=== PATIENT | male | born 1940 | race Caucasian/White ===

== ENCOUNTER → 2016-06-04 | Outpatient (CLI) | payer MEDICARE ==
--- NOTE | 2016-06-04 08:57 | CT ---
EXAM DESCRIPTION: CT ABDOMEN PELVIS WITHOUT IV CONTRAST CLINICAL HISTORY: HEMATURIA COMPARISON: None. TECHNIQUE: Noncontrast transaxial CT images of the abdomen and pelvis are obtained using renal stone imaging protocol. CT scan done according to ALARA (As Low As Reasonably Achievable). FINDINGS: The visualized lung bases show mild interstitial thickening. The heart appears enlarged. Given the limitations of a noncontrast exam the liver, spleen comma pancreas, adrenal glands, and gallbladder are unremarkable. Moderate atherosclerotic disease is seen without aortic aneurysm. Kidneys show no abnormal calcifications. No ureteral obstruction. Several fluid attenuation cortical cysts are seen on both kidneys. The largest exophytic cyst on the upper pole right kidney measures 2.2 cm. Urinary bladder is mildly distended. Small probable bladder diverticulum off the dome of the urinary bladder measures 11 mm. Prostate is enlarged measuring 6.9 x 7.4 cm indenting the floor of the urinary bladder. Moderate bilateral fat containing inguinal hernias are seen. The appendix is not identified. No secondary signs of acute appendicitis are seen. Small bowel shows no evidence of obstruction. Stomach is somewhat contracted and not well evaluated. Scattered diverticuli of the colon most prominent in the descending to sigmoid region are seen without associated inflammatory changes or fluid collections. There are multiple nonspecific mostly less than 1 cm retroperitoneal lymph nodes in the abdomen and pelvis. Osseous structures show no aggressive bony lesions. Large area of probable dystrophic or heterotopic ossification in the soft tissue posterior to the lower lumbar spine and upper sacrum measures 8.2 x 2.2 cm. Moderate left greater than right probable osteoarthritic changes of the sacroiliac joints are seen. Remote healed right-sided rib fractures are seen. IMPRESSION: No CT evidence of significant nephrolithiasis or ureteral obstruction. Significant enlargement of the prostate is seen indenting the floor of the urinary bladder. Probable small bladder diverticulum in the dome. Moderate colon diverticulosis without CT evidence of diverticulitis. Other findings as described in body of the report. Electronically signed by: Kwadwo Patterson MD 06/04/2016 08:56
== END ==
LOC: CT 08:25
PROVIDERS: ATTEND Nurse Practitioner Family
DX: R31.9 Hematuria, unspecified (principal); K57.30 Diverticulosis of large intestine without perforation or abscess without bleeding; N40.0 Benign prostatic hyperplasia without lower urinary tract symptoms

== ENCOUNTER → 2016-07-27 | Outpatient (CLI) | payer MEDICARE | END | disposition home or self-care (01) | LOC: GMAJ 10:32 | PROVIDERS: ATTEND Family Medicine | DX: I50.9 Heart failure, unspecified (principal) ==

== ENCOUNTER → 2016-11-27 | Outpatient (CLI) | payer MEDICARE | END | disposition home or self-care (01) | LOC: GMAJ 10:28 | PROVIDERS: ATTEND Family Medicine | DX: I50.9 Heart failure, unspecified (principal); Z12.5 Encounter for screening for malignant neoplasm of prostate | CPT/HCPCS: 83880; G0103 ==

== ENCOUNTER 2017-03-03 11:07 | Inpatient (IN) | payer MEDICARE ==
--- NOTE | 2017-03-03 11:33 | HP ---
SUPERVISING PHYSICIAN: Canelo Reyes M.D. CHIEF COMPLAINT: Shortness of breath with congestion that has been going for several weeks. HISTORY OF PRESENT ILLNESS: This is a 76 year-old male patient who has complaints of shortness of breath, chest congestion, nasal congestion, wheezing and weakness that has been going on for about 2 weeks. About a week ago he saw SINGH Tello, in the [facility] and he was given Augmentin as well as placed on oxygen. He returned to see his primary care physician, Dr. Reyes, this morning and his chest x-ray per radiology interpretation shows interstitial infiltrate in the right lower lobe with a small right sided pleural effusion that has slightly increased since the previous study. His chest congestion had worsened and his oxygen saturations in the clinic were 76 on room air. He was given supplemental oxygen and Dr. Reyes called me for hospital admission. PAST MEDICAL HISTORY: 1. Congestive heart failure of unknown etiology. 2. Coronary artery disease. 3. Hypertension. 4. Atrial fibrillation. 5. Chronic obstructive pulmonary disease. 6. Type 2 diabetes. PAST SURGICAL HISTORY: 1. Appendectomy. 2. Arthroscopy of the right knee. 3. Right femur repair. 4. Triple bypass CABG in 2008. CURRENT MEDICATIONS: Per the EMR and awaiting verification, although he does not take his Metformin. He is prescribed Metformin but he does not take it. ALLERGIES: CODEINE. SOCIAL HISTORY: He is . He has a past history of cigarette smoking, but quit in 2008. He stopped drinking alcohol many years ago. He denies any illicit drug use. REVIEW OF SYSTEMS: Positive for fatigue. Negative for fever or weight changes. HEENT: Positive for sinus symptoms but negative for ear pain, vision changes or sore throat. RESPIRATORY: As per history of present illness. CARDIAC: Negative for chest pain, tachycardia or palpitations. GASTROINTESTINAL: Negative for nausea, vomiting, diarrhea, constipation or abdominal pain. NEUROLOGIC: Positive for weakness. Negative for dizziness or seizures. GENITOURINARY: Negative for dysuria or hematuria. PHYSICAL EXAMINATION: VITAL SIGNS: He is afebrile. Heart rate has gone as high as 113 but is now 96 , blood pressure 127/74. Respiratory rate has been as high as 24 and is now 16. O2 sat was 89 on room air on admission. It is now up to 92 to 93%. It was 76% on room air at the clinic. GENERAL: This is an obese 76 year-old male patient who is lying in his hospital bed. He is slightly dyspneic. HEENT: Normocephalic and atraumatic. Pupils are equal and reactive. Oropharynx is clear. NECK: Supple without mass. CHEST: He has rhonchi scattered throughout with a little bit of expiratory wheezing, especially in the upper lung khan, somewhat diminished at the bases. CARDIOVASCULAR: Irregular rhythm, regular to slightly tachycardic rate. ABDOMEN: Rounded, soft, nondistended, non-tender. Bowel sounds are positive. EXTREMITIES: No cyanosis, clubbing or edema. NEUROLOGIC: He is awake, alert and oriented times three. LABORATORY: His labs today show white count 5.8, hemoglobin 13.7 with hematocrit 42.4, neutrophils 68.6. Blood gas shows PCO2 of 60 and PO2 of 67 with pH of 7.36 and O2 sat of 91.7% on 2 liters nasal cannula. Sodium is slightly low at 132 with potassium 4.4, chloride 93, carbon dioxide 34, anion gap 9.4, BUN 32, creatinine 1.2, glucose 236. BNP is 299. Liver enzymes are negative. Urinalysis shows urine protein at 100, urine glucose of 100 and urine blood of trace intact. Blood cultures, urine cultures and sputum cultures are pending. RADIOLOGY: Report is as per the History of Present Illness. ASSESSMENT: 1. Right lower lobe pneumonia community acquired with considerations for Streptococcus pneumoniae in a patient with a history of chronic obstructive pulmonary disease. He has failed outpatient therapy. 2. Acute exacerbation of chronic obstructive pulmonary disease that has failed outpatient therapy in a patient that uses oxygen at home. 3. History of atrial fibrillation. 4. Congestive heart failure of unknown etiology. 5. Diabetes mellitus. 6. Hypertension. 7. History of 3 vessel coronary artery bypass graft. PLAN: We will admit the patient to the hospital. I have done cultures and will repeat his lab in the morning. Will do a chest x-ray in the morning. I have started him on Levaquin. I will also give him a low dose of steroids. He is on sliding scale insulin for his coverage and I will start his routine medicines. I have ordered aggressive pulmonary hygiene as well as breathing treatments. I have ordered Protonix for ulcer prophylaxis and Lovenox for DVT prophylaxis. We will continue to monitor the patient closely and followup as needed. Dr. Reyes is the collaborating physician available for consultation. [facility][id number] [facility]
[2017-03-03] MEDS ORDERED: SODIUM CHLORIDE 0.9% (FLUSH) 10 ML SYG IV PRN (12:05)
[2017-03-03] MEDS ORDERED: ACETAMINOPHEN 325 MG TAB PO PRN (12:05)
[2017-03-03] MEDS ORDERED: LEVALBUTEROL NEBS 1.25 MG/3 ML VIAL NEB PRN (12:05)
[2017-03-03] MEDS ORDERED: DEXTROSE 50% 25 GM/50 ML SYG IV PRN (12:14)
[2017-03-03] MEDS ORDERED: GLUCAGON INJ 1 MG VIAL SUBCU PRN (12:14)
[2017-03-03] MEDS ORDERED: PANTOPRAZOLE SODIUM IV 40 MG VIAL IV SCH (12:30)
[2017-03-03] MEDS ORDERED: ENOXAPARIN SODIUM 40 MG/0.4 ML SYG SUBCU SCH (12:30)
[2017-03-03] MEDS ORDERED: IV SET AND CAP CHANGE INJ INJ SCH (12:30)
[2017-03-03] MEDS ORDERED: LEVALBUTEROL NEBS 1.25 MG/3 ML VIAL INH SCH (12:30)
[2017-03-03] MEDS: levoFLOXacin 750MG IV 750 MG in PREMIX BAG 1 BAG IVPB SCH (13:11)
[2017-03-03] MEDS: LEVALBUTEROL NEBS 1.25 MG/3 ML VIAL NEB SCH ×2 (16:15→20:41)
[2017-03-03] MEDS: INSULIN LISPRO 100 UNITS/ML PEN SUBCU SCH ×2 (16:32→21:40)
[2017-03-03] MEDS: methylPREDNISolone SODIUM SUC 125 MG/2 ML VIAL IV SCH (18:05)
[2017-03-03] MEDS: SODIUM CHLORIDE 0.9% (FLUSH) 10 ML SYG IV SCH (20:18)
[2017-03-03] MEDS ORDERED: METOPROLOL TARTRATE INJ 5 MG/5 ML VIAL IV ONE (22:22)
[2017-03-03] MEDS: METOPROLOL TARTRATE INJ 5 MG/5 ML VIAL IV SCH (23:41)
[2017-03-04] MEDS: methylPREDNISolone SODIUM SUC 125 MG/2 ML VIAL IV SCH ×3 (01:30→16:53)
[2017-03-04] MEDS: METOPROLOL TARTRATE INJ 5 MG/5 ML VIAL IV SCH ×3 (03:38→15:04)
[2017-03-04] MEDS ORDERED: PANTOPRAZOLE SODIUM IV 40 MG VIAL ONE (05:27)
[2017-03-04] MEDS ORDERED: PANTOPRAZOLE SODIUM IV 40 MG VIAL IV SCH (06:30)
--- NOTE | 2017-03-04 06:48 | RAD ---
Clinical History : Pneumonia , MAIN Exam : PA and lateral views of the chest 03/04/2017 7:00 AM CDT Comparisons : Portable AP view of the chest April 01, 2015 Findings : There is confluent bilateral lower lobe airspace disease with small bilateral pleural effusions. The heart is mildly enlarged. The mediastinal contours are normal in appearance. The patient is status post sternotomy and CABG. There are vascular calcifications along the aortic arch. The thoracic spine is age appropriate. The shoulders are unremarkable. Limited evaluation of the upper abdomen demonstrates no gross abnormalities. Impression: Bilateral lower lobe airspace disease with bilateral pleural effusions, may represent multifocal infectious process. Electronically signed by: Cordelia Youssef MD 03/04/2017 6:47 AM CDT
[2017-03-04] MEDS: INSULIN LISPRO 100 UNITS/ML PEN SUBCU SCH ×4 (07:51→21:10)
[2017-03-04] MEDS ORDERED: METOPROLOL SUCCINATE XL 50 MG TAB ONE ×2 (08:20→19:42)
[2017-03-04] MEDS: SODIUM CHLORIDE 0.9% (FLUSH) 10 ML SYG IV SCH ×2 (08:24→20:29)
[2017-03-04] MEDS: LEVALBUTEROL NEBS 1.25 MG/3 ML VIAL NEB SCH ×4 (08:30→20:07)
[2017-03-04] MEDS ORDERED: METOPROLOL TARTRATE 50 MG TAB PO ONE (08:46)
[2017-03-04] MEDS ORDERED: METOPROLOL SUCCINATE XL 50 MG TAB PO SCH (09:00)
[2017-03-04] MEDS ORDERED: ENOXAPARIN SODIUM 40 MG/0.4 ML SYG SUBCU SCH (09:00)
[2017-03-04] MEDS ORDERED: METOPROLOL TARTRATE 50 MG TAB PO SCH ×2 (09:00→21:00)
[2017-03-04] MEDS: DABIGATRAN ETEXILATE 75 MG CAP PO SCH ×2 (09:45→20:27)
[2017-03-04] MEDS: FUROSEMIDE 40 MG TAB PO SCH (09:47)
[2017-03-04] MEDS ORDERED: METOPROLOL TARTRATE INJ 5 MG/5 ML VIAL IV PRN (11:45)
[2017-03-04] MEDS: levoFLOXacin 750MG IV 750 MG in PREMIX BAG 1 BAG IVPB SCH (13:37)
[2017-03-04] MEDS: diltiaZEM HCL TAB 30 MG TAB PO SCH ×2 (16:52→20:27)
--- NOTE | 2017-03-04 17:09 | PN ---
DATE: 03/04/17 SUPERVISING PHYSICIAN: Canelo Reyes M.D. SUBJECTIVE: The patient is lying in bed. He has no complaints of chest pain, shortness of breath, nausea, vomiting or diarrhea. With exertion, he has some shortness of breath and he continues to cough occasionally, but otherwise he feels like he is getting better. Last night at about 10:00 PM, he went into atrial fibrillation with rapid ventricular response with a rate in the 130s to 150s. He was given a dose of Lopressor 5 mg. It brought his heart rate down to the 120s and then it popped back up into the 130s again. He was given an additional dose of Lopressor 5 mg IV and his heart rate came down to around 100. He did not take his morning Metoprolol on the day of admission but he received his evening dose. He had no chest pain during the accelerated heart rhythm and again this morning at about 7:00 his heart rate went back up to the 140s and he was again in atrial fibrillation with rapid ventricular response. He was given an additional dose of Lopressor and his Metoprolol was increased this morning. I spoke with his mend worker, Dr. Zurita, and he wanted him to continue on his usual dose of Metoprolol and to add Cardizem 60 every 6 hours. OBJECTIVE: He is afebrile, heart rate 97 to 117, blood pressure 132/85. It has been as high as 156/96. Respiratory rate 20, O2 sat is 95% on 1.5 liters nasal cannula. RESPIRATORY: Some scattered rhonchi throughout all khan, somewhat diminished at the bases. There is no wheezing at this time. CARDIAC: Regular to slightly tachycardic rate, irregular rhythm. Atrial fibrillation on the cardiac catheterization technician. ABDOMEN: Soft, nondistended, non-tender. Bowel sounds are positive. EXTREMITIES: No cyanosis or clubbing. He does have a trace of pedal edema. NEUROLOGIC: He is awake, alert and oriented times three. LABORATORY: WBC is 6.2, hemoglobin and hematocrit are stable at 13.1 and 40.5. Sodium 133, potassium 4.7, chloride 93, carbon dioxide 33, anion gap 11.7, BUN 34, creatinine 1.35, glucose 296, BNP 299. Further incubation is required on his sputum culture. Preliminary urine culture shows no growth after 24 hours and preliminary blood culture shows no growth after 24 hours. RADIOLOGY: Chest x-ray per radiology interpretation shows bilateral lower lobe airspace disease with bilateral pleural effusions may represent multifocal infectious process. All other labs and films have been reviewed via the EMR. ASSESSMENT: 1. Right lower lobe pneumonia community acquired with considerations for Streptococcus pneumoniae still awaiting sputum cultures in a patient with a history of chronic obstructive pulmonary disease. He has failed outpatient therapy. He is on chronic oxygen at home. 2. Acute exacerbation of chronic obstructive pulmonary disease that has failed outpatient therapy in a patient that uses oxygen at home. 3. Atrial fibrillation with rapid ventricular response. He has a known history of atrial fibrillation and is on Pradaxa. He required 3 doses of IV Lopressor in the last 12 hours. 4. Congestive heart failure of unknown etiology. 5. Diabetes mellitus type 2. 6. Hypertension. 7. History of coronary artery bypass graft. PLAN: We will continue to monitor the patient closely. I spoke with Dr. Zurita, the patient's mend worker, and he wanted him to continue on his present dose of Metoprolol and add short-acting Cardizem 60 mg every 6 hours. If the patient goes into atrial fibrillation with rapid ventricular response again, we are to increase it to 90 mg every 6 hours. Upon discharge, he is to be discharged on the long-acting Cardizem CD at appropriate dosing based on his Cardizem needs in the hospital. His breathing treatments have been limited to if he is wheezing or short of breath. I have ordered routine labs in the morning. I have discontinued his Lovenox and he was continued on his Pradaxa. He is to continue on his Levaquin until cultures are available. We may need to adjust his sliding scale as he is on steroids and I will taper his steroids. Encourage good pulmonary hygiene. Otherwise we will continue to monitor him closely and follow as needed. Dr. Reyes is the collaborating physician available for consultation. #[id number] [facility]
--- NOTE | 2017-03-04 18:57 | PCM.CORE ---
Physician DVT/VTE - Prophylaxis Currently: Patient already on anticoagulation therapy - Nurse DVT Assessment & Total Each Risk Factor Represents 3 Points: Age over 75 years, Medical PT with Hx of CA, CHF, Severe infection/sepsis Each Risk Factor is 1 Point: Obesity (BMI >25) DVT Assessment Score: 7 - 5 or more Very High Risk Treatments: Early Ambulation *, Sequential Compression Device
[2017-03-04] MEDS ORDERED: PANTOPRAZOLE SODIUM TAB 40 MG PO ONE (19:42)
[2017-03-04] MEDS ORDERED: TAMSULOSIN 0.4 MG CAP ONE (19:42)
[2017-03-04] MEDS: METOPROLOL SUCCINATE XL 50 MG TAB PO SCH (20:27)
[2017-03-04] MEDS: TAMSULOSIN 0.4 MG CAP PO SCH (20:27)
[2017-03-04] MEDS: TEMAZEPAM 15 MG CAP PO PRN ×2 (20:30)
[2017-03-04] MEDS: ALPRAZolam 0.25 MG TAB PO PRN (20:30)
[2017-03-05] MEDS: methylPREDNISolone SODIUM SUC 125 MG/2 ML VIAL IV SCH ×2 (00:39→08:33)
[2017-03-05] MEDS: diltiaZEM HCL TAB 30 MG TAB PO SCH ×4 (04:37→20:36)
[2017-03-05] MEDS: PANTOPRAZOLE SODIUM TAB 40 MG PO SCH (05:42)
--- NOTE | 2017-03-05 07:11 | RAD ---
Procedure: XR CHEST 2 VIEWS Exam Date: 03/05/2017 Ordering Provider: SABRINA BAKER Clinical Indication: pna Comparison: 03/04/2017 Findings: Residuals of thoracic surgery. Cardiomediastinal silhouette is stable. Focal lung consolidation: Bibasilar infiltrates are not significantly changed from prior. Pleural effusion: Small to moderate bilateral pleural effusions. Pneumothorax: None Acute bony or soft tissue abnormality: None Impression: 1. Bibasilar infiltrates are not significantly changed from prior. 2. Small to moderate bilateral pleural effusions. Electronically signed by: Aung Jacques MD 03/05/2017 7:10 AM CDT
[2017-03-05] MEDS ORDERED: FINASTERIDE 5 MG TAB ONE (07:24)
[2017-03-05] MEDS ORDERED: SODIUM CHLORIDE 0.9% 250ML 0 ML ONE (07:24)
[2017-03-05] MEDS ORDERED: cefTRIAXone SODIUM 1 GM VIAL ONE (07:25)
[2017-03-05] MEDS ORDERED: SODIUM CHL 0.9% 50ML MIN-BAG+ 0 ML IVPB ONE (07:25)
[2017-03-05] MEDS ORDERED: AZITHROMYCIN IV 500 MG VIAL IVPB ONE (07:25)
[2017-03-05] MEDS ORDERED: ENALAPRIL MALEATE 5 MG TAB ONE (07:25)
[2017-03-05] MEDS: INSULIN LISPRO 100 UNITS/ML PEN SUBCU SCH ×4 (07:47→21:57)
[2017-03-05] MEDS: LEVALBUTEROL NEBS 1.25 MG/3 ML VIAL NEB SCH ×4 (08:30→19:20)
[2017-03-05] MEDS: FUROSEMIDE 40 MG TAB PO SCH (08:32)
[2017-03-05] MEDS: METOPROLOL SUCCINATE XL 50 MG TAB PO SCH ×2 (08:33→20:36)
[2017-03-05] MEDS: DABIGATRAN ETEXILATE 75 MG CAP PO SCH ×2 (08:33→20:36)
[2017-03-05] MEDS: SODIUM CHLORIDE 0.9% (FLUSH) 10 ML SYG IV SCH ×2 (09:32→20:40)
[2017-03-05] MEDS ORDERED: FUROSEMIDE INJ 20 MG/2 ML VIAL IV ONE (11:29)
[2017-03-05] MEDS ORDERED: levoFLOXacin 250MG IV 250 MG in PREMIX BAG 1 BAG IVPB SCH (12:30)
[2017-03-05] MEDS ORDERED: levoFLOXacin 250MG IV 50 ML IVPB ONE (12:35)
--- NOTE | 2017-03-05 18:26 | PN ---
DATE: 03/05/17 SUPERVISING PHYSICIAN: Canelo Reyes M.D. SUBJECTIVE: The patient denies any further runs of rapid ventricular response through the night. He remains on 60 of Cardizem every 6 hours. He has been afebrile. OBJECTIVE: VITAL SIGNS: T max 98, pulse 75, blood pressure 118/68, respirations 18, satting 94% on nasal cannula at rest at 1.5 liters. I's and O' s show a positive balance of 180 with 980 in, 800 out. He has had several bowel movements. Weight is 93.1 kg. CHEST: Lungs are fairly clear, just diminished towards the bases today. No wheezing is noted. HEART: Slightly irregular rate and rhythm with a controlled ventricular rate. ABDOMEN: Obese but soft, non-tender with positive bowel sounds. EXTREMITIES: Trace of edema remains bilaterally. No clubbing or cyanosis is noted. NEUROLOGIC: He is alert and oriented times three. LABORATORY: White count remains within normal limits at 10,000, hemoglobin 12.8 , hematocrit 39.6, platelet count 169,000. Differential continues to show a left shift. Chemistries show hyponatremia that is persistent with a normal potassium at 4.9. Carbon dioxide remains elevated but improved from previous admission of 34. BUN is elevated at 40, creatinine is up to 1.46. Blood sugars remain elevated in the 200s between 228 and 260. MICROBIOLOGY: Blood cultures remain negative at 48 hours. Urine culture showed no growth at 48 hours. Sputum culture showed normal earlene at 48 hours. RADIOLOGY: Chest x-ray two view chest per radiology interpretation shows bibasilar infiltrates not significantly changed from previous exam and a small to moderate bilateral pleural effusion. ASSESSMENT: 1. Right lower lobe pneumonia community acquired with sputum culture showing no growth with a history of the patient having a history of chronic obstructive pulmonary disease having failed to respond to outpatient treatment plan requiring chronic oxygen. 2. Acute exacerbation of chronic obstructive pulmonary disease with the patient having failed to respond to outpatient treatment plan. 3. Atrial fibrillation with rapid ventricular response on admission now with a controlled rate on Pradaxa and 60 mg of Cardizem every 6 hours. 4. Congestive heart failure unknown etiology with no echocardiogram available for review. 5. Diabetes mellitus type 2, elevated secondary to corticosteroid administration. 6. Hypertension. 7. History of coronary artery bypass grafts. 8. Renal insufficiency likely acute with some exacerbation secondary to current antibiotic therapy with Levaquin and some diuresis. PLAN: Will continue to follow the patient. Anticipate discharge tomorrow as he continues to show good ventricular rate response on current Cardizem of 60 mg every 6 hours. Should he again show an increase in his rate, as instructed by Dr. Zurita will increase him to 90 mg every 6 hours. Tomorrow on discharge he will need to go home on Cardizem CD based off current dosage if remaining the same with controlled ventricular rate. Will continue with aggressive pulmonary hygiene. His renal function has shown some slight worsening probably related to some diuresis and current Levaquin which we will dose according to current renal function. Again, will anticipate discharge tomorrow. Until then, will continue to follow and treat appropriately. #[id number] [facility]
[2017-03-05] MEDS ORDERED: methylPREDNISolone SODIUM SUC 40 MG/ML VIAL ONE (19:47)
[2017-03-05] MEDS: ALPRAZolam 0.25 MG TAB PO PRN (20:36)
[2017-03-05] MEDS: TEMAZEPAM 15 MG CAP PO PRN (20:36)
[2017-03-05] MEDS: TAMSULOSIN 0.4 MG CAP PO SCH (20:36)
[2017-03-05] MEDS: methylPREDNISolone SODIUM SUC 40 MG/ML VIAL IV SCH (20:41)
[2017-03-06] MEDS: diltiaZEM HCL TAB 30 MG TAB PO SCH ×2 (04:10→09:49)
[2017-03-06] MEDS: PANTOPRAZOLE SODIUM TAB 40 MG PO SCH (05:51)
[2017-03-06 06:03] VITALS: O2SAT 93
[2017-03-06] MEDS: LEVALBUTEROL NEBS 1.25 MG/3 ML VIAL NEB SCH (07:24)
[2017-03-06] MEDS: INSULIN LISPRO 100 UNITS/ML PEN SUBCU SCH (07:47)
[2017-03-06 08:27] VITALS: BP 118/75; TEMP 97.6
[2017-03-06] MEDS: FUROSEMIDE 40 MG TAB PO SCH (08:28)
[2017-03-06] MEDS: methylPREDNISolone SODIUM SUC 40 MG/ML VIAL IV SCH (08:28)
[2017-03-06] MEDS: DABIGATRAN ETEXILATE 75 MG CAP PO SCH (08:30)
[2017-03-06] MEDS: METOPROLOL SUCCINATE XL 50 MG TAB PO SCH (08:30)
[2017-03-06] MEDS: SODIUM CHLORIDE 0.9% (FLUSH) 10 ML SYG IV SCH (08:30)
[2017-03-06] MEDS ORDERED: INFLUENZA VIRUS VACC (ADULT) 0.5 ML SYG IM ONE (10:48)
[2017-03-07] MEDS ORDERED: predniSONE 20 MG TAB PO SCH (09:00)
--- NOTE | 2017-03-12 11:19 | DS ---
SUPERVISING PHYSICIAN: Canelo Reyes MD DISCHARGE DIAGNOSIS: 1. Right lower lobe pneumonia, community acquired, with the patient having long- standing history of chronic obstructive pulmonary disease, having failed to respond to outpatient treatment plan requiring ongoing oxygen therapy with sputum cultures showing no growth. 2. Acute exacerbation of chronic obstructive pulmonary disease with the patient having failed to respond to outpatient treatment plan. 3. Atrial fibrillation with rapid ventricular response on admission, now controlled on Pradaxa and 60 mg of Cardizem every 6 hours, transitioned to Cardizem CD at discharge. 4. Congestive heart failure, unknown etiology, with no echocardiogram available for review. 5. Diabetes mellitus, type 2, elevated secondary to corticosteroid administration. 6. Hypertension. 7. History of coronary artery disease with coronary artery bypass grafts. 8. Renal insufficiency, likely acute with exacerbation secondary to current antibiotic therapy with Levaquin and diuresis. HISTORY OF PRESENT ILLNESS: Mr. Babcock is a 76-year-old, male patient who had complaints of shortness of breath, chest congestion, nasal congestion, wheezing and weakness that had been progressively worsening for the last 2 weeks prior to admission. About a week prior, he saw SINGH Tello, in the [facility] clinic and he was given Augmentin as well as placed on oxygen. He returned to see his primary care physician, Dr. Reyes, the morning of admission and his chest x-ray per radiology interpretation showed interstitial infiltrate in the right lower lobe with a small right sided pleural effusion that had slightly increased since the previous study. His chest congestion had worsened and his oxygen saturations in the clinic were 76% on room air. He was given supplemental oxygen and Dr. Reyes requested the patient be directly admitted for continuation of treatment for developing community acquired pneumonia. The patient was admitted in stable condition. LABORATORY: Initial white count on admission was 5.8 and at discharge was 10.0. Hemoglobin was stable, hematocrit stable and at discharge were 12.8 and 39.6. Platelet count 169,000. Differential did show a left shift although the patient had been started on corticosteroids. His blood gas on admission showed pH 7.36, PCO2 60, PO2 67, bicarb 32, saturation 91% on nasal cannula at 2 liters. Chemistries on admission showed hyponatremia with sodium 132, potassium normal at 4.4, BUN 32, creatinine 1.20. Liver functions were within normal limits. BNP elevated at 299. Blood sugars were elevated secondary to corticosteroid administration ranging from 200 to 300s. After treatment and prior to discharge, sodium showed some improvement and was up to 134. BUN was 56, creatinine 2.16, but he had been diuresed pretty heavily as well as on high dose Levaquin. Urinalysis showed 100 glucose, 100 protein, trace amount of blood, otherwise within normal limits. MICROBIOLOGY: Two sets of blood cultures remained negative after 5 days. Urine culture showed no growth after 48 hours. Sputum culture showed no growth at 48 hours. RADIOLOGY: Chest x-ray after admission showed bilateral lower lobe airspace disease with bilateral pleural effusions per radiologic interpretation. EKG on admission showed atrial fibrillation with rapid ventricular response in the 150s. Additional chest x-rays prior to discharge per radiologic interpretation showed bibasilar infiltrates, not significantly changed from previous and a small moderate bilateral pleural effusion. HOSPITAL COURSE: Mr. Babcock was admitted for exacerbation of chronic obstructive pulmonary disease with pneumonia as noted above. He was started on aggressive pulmonary hygiene with breathing treatments and Levaquin as well as Solu-Medrol. He did have initial ventricular response that was in the 150s. He was given additional doses of Lopressor IV with good result in some decrease of his rate, however, was started on Cardizem p.o. which did show his rate at 60 mg q.6h. No additional adjustments were needed. He was titrated off his steroids to p.o. prednisone prior to discharge. Levaquin was dosed according to renal function . He was showing good improvement and good response to clinical treatment as well as he had been on ceftriaxone and azithromycin. It was felt on the morning of discharge that he had progressed clinically well enough and was stable to be discharged. PLAN: Mr. Babcock was discharged on 03/06/17 with instructions to followup with both his primary care provider, Dr. Reyes, the following week after discharge as well as Dr. Zurita, his disbursing agent. He was to resume his home medications as instructed and start new prescriptions as directed. He was to limit his fluids to less than 1800 mL per 24 hour period and to keep his legs elevated when in a chair. He was to wear his oxygen as directed and return to the hospital should he have any concerning symptoms or any failure to improve in his condition. DISCHARGE PRESCRIPTIONS: 1. Xopenex nebulizer treatments 1.25 mg q.8h. 2. Xopenex inhaler 45 mcg q.8h., #1 inhaler. 3. Cardizem CD 240 mg daily, #30. 4. Levaquin 250 mg daily, #10. 5. Medrol Dosepak 4 mg as directed. All other medications were resumed as prior to hospitalization. DIET AT DISCHARGE: Regular diet as tolerated. ACTIVITY: As tolerated. CONDITION AT DISCHARGE: Stable and improved. [facility][id number] [facility]
== END 2017-03-06 12:00 | disposition home or self-care (01) | DRG 190 ==
LOC: MS 11:07
PROVIDERS: ADMIT Nurse Practitioner Acute Care; ATTEND Nurse Practitioner Family
DX: J44.0 Chronic obstructive pulmonary disease with (acute) lower respiratory infection (principal); J18.9 Pneumonia, unspecified organism; J44.1 Chronic obstructive pulmonary disease with (acute) exacerbation; I11.0 Hypertensive heart disease with heart failure; I50.9 Heart failure, unspecified; I48.91 Unspecified atrial fibrillation; E11.9 Type 2 diabetes mellitus without complications; N28.9 Disorder of kidney and ureter, unspecified; I25.10 Atherosclerotic heart disease of native coronary artery without angina pectoris; T37.8X5A Adverse effect of other specified systemic anti-infectives and antiparasitics, initial encounter; Y92.230 Patient room in hospital as the place of occurrence of the external cause; Z95.1 Presence of aortocoronary bypass graft; Z88.5 Allergy status to narcotic agent; Z87.891 Personal history of nicotine dependence

== ENCOUNTER → 2017-03-23 | Outpatient (CLI) | payer MEDICARE | END | disposition home or self-care (01) | LOC: YCHH 09:51 | PROVIDERS: ATTEND Family Medicine | DX: E11.9 Type 2 diabetes mellitus without complications (principal) ==

== ENCOUNTER → 2017-03-24 | Outpatient (CLI) | payer MEDICARE | END | disposition home or self-care (01) | LOC: LAB.O 13:28 | PROVIDERS: ATTEND Family Medicine | DX: I25.10 Atherosclerotic heart disease of native coronary artery without angina pectoris (principal); R97.20 Elevated prostate specific antigen [PSA] ==

== ENCOUNTER → 2017-04-29 | Outpatient (CLI) | payer MEDICARE | END | disposition home or self-care (01) | LOC: GMAJ 16:39 | PROVIDERS: ATTEND Family Medicine | DX: R06.02 Shortness of breath (principal) ==

== ENCOUNTER 2017-05-01 15:26 | Emergency (ER) | payer MEDICARE ==
[2017-05-01 15:39] VITALS: TEMP 97.8
--- NOTE | 2017-05-01 16:11 | ED.PDOC ---
History of Present Illness - General Chief Complaint: Respiratory Problem Stated Complaint: weakness, shortness of breath Time Seen by Provider: 05/01/17 15:58 Source: patient Exam Limitations: no limitations Additional Information: PT WITH 1-2 WEEK HX OF SOB AND WEAKNESS WHICH HAS BEEN INTERMITTENT. TODAY BECAME SOB WITH MUCH MORE WEAKNESS THAN PREVIOUS. CAME IN FOR EVAL - History of Present Illness Timing/Duration: 1 week Severity: moderate Improving Factors: nothing Worsening Factors: nothing Associated Symptoms: denies symptoms Allergies/Adverse Reactions: Allergies Codeine Allergy (Verified 04/01/15 13:29) Home Medications: Ambulatory Orders Dabigatran Etexilate Mesylate [Pradaxa] 150 mg PO BID 03/03/17 Furosemide [Lasix] 20 mg PO DAILY 03/03/17 Metoprolol Succinate [Metoprolol Succinate ER] 50 mg PO BID 03/03/17 Tamsulosin [Flomax] 0.4 mg PO BEDTIME 03/03/17 Diltiazem HCl Coated Beads [Cardizem Cd] 240 mg PO DAILY #30 cap 03/06/17 Levalbuterol Nebs [Xopenex NEBS] 1.25 mg NEB Q8HR #24 units 03/06/17 Levalbuterol Tartrate [Xopenex Hfa] 45 mcg IN Q8HR #1 inh 03/06/17 Levofloxacin [Levaquin] 250 mg PO DAILY #10 tab 03/06/17 Methylprednisolone [Medrol Dose Cuauhtemoc] 4 mg PO DAILY #1 pack 03/06/17 Levofloxacin [Levaquin] 750 mg PO DAILY #4 tablet 05/01/17 Review of Systems - Review of Systems Constitutional: Denies: chills, fever EENTM: States: no symptoms reported Respiratory: States: cough, short of breath. Denies: orthopnea, wheezing Cardiology: Denies: chest pain, palpitations, syncope Gastrointestinal/Abdominal: Denies: abdominal pain, nausea, vomiting Genitourinary: States: no symptoms reported Musculoskeletal: States: no symptoms reported Skin: States: no symptoms reported Neurological: States: no symptoms reported Endocrine: States: no symptoms reported Hematologic/Lymphatic: States: no symptoms reported Past Medical History (General) - Patient Medical History Hx Seizures: No Hx Stroke: No Hx Asthma: No Hx of COPD: Yes Hx Cardiac Disorders: Yes Hx Congestive Heart Failure: Yes Hx Pacemaker: No Hx Hypertension: Yes Hx Diabetes: Yes Hx MRSA: No Surgical History: appendectomy, coronary bypass surgery, other - Vaccination History Hx Influenza Vaccination: Yes - Social History Hx Tobacco Use: No Hx Alcohol Use: No Hx Substance Use: No Hx Physical Abuse: No Hx Emotional Abuse: No Family Medical History - Family History Father Family History: Unknown Living Status: Unknown Physical Exam - Physical Exam General Appearance: Obese, Other - MILD RD Eye Exam: bilateral normal Ears, Nose, Throat: hearing grossly normal, normal ENT inspection Neck: non-tender, full range of motion, supple Respiratory: lungs clear, normal breath sounds, no respiratory distress, other - DIMINSHED DANNY Cardiovascular/Chest: regular rate, rhythm, no murmur Gastrointestinal/Abdominal: normal bowel sounds, non tender, soft, no organomegaly Back Exam: normal inspection, no CVA tenderness Extremity: normal range of motion, non-tender, other - 1+ PITTING EDEMA Neurologic: alert, normal mood/affect Skin Exam: normal color, warm/dry Lymphatic: no adenopathy Progress - Progress Progress: 05/01/17 18:44 O2 SATS STABLE ON N/C. PT WITH PROBABLE NEW RLL INFILTRATE VS RESOLVING INFILTRATE. WOULD RATHER TRY TO TX AT HOME OPPOSED TO HOSPITALIZATION. INSTRUCTED TO WEAR O2 /, NEBS 4-6 TIMES DAILY AND CALL PCP WEDNESDAY AM. PT AGREED. - EKG/XRAY/CT EKG: Atrial, Fibrillation - RATE 83, NL AXIS, OLD ANT/SEPTAL WALL VT, , nonspecific ST T wave Chg - NAIP, , Abnormal Q waves - 03/03/17. ANT/SEPTAL CHANGES NEW. XRAY: chest - RLL INFILTRATE Procedures - Additional Procedures Progress: O2 SATS 85% RA (HYPOXIC) Departure - Departure Clinical Impression: Atrial fibrillation with normal ventricular rate, Hypoxemia Pneumonia Qualifiers: Pneumonia type: due to unspecified organism Laterality: right Lung location: lower lobe of lung Qualified Code(s): J18.1 - Lobar pneumonia, unspecified organism Time of Disposition: 18:50 Disposition: Discharge to Home or Self Care Condition: Fair Departure Forms: ED Discharge - Pt. Copy, Patient Portal Self Enrollment Instructions: DI for Pneumonia -- Adult Referrals: Canelo Reyes MD [Primary Care Provider] - 1-2 Weeks Prescriptions: Levofloxacin [Levaquin] 750 mg PO DAILY #4 tablet Home Medications: Ambulatory Orders Dabigatran Etexilate Mesylate [Pradaxa] 150 mg PO BID 03/03/17 Furosemide [Lasix] 20 mg PO DAILY 03/03/17 Metoprolol Succinate [Metoprolol Succinate ER] 50 mg PO BID 03/03/17 Tamsulosin [Flomax] 0.4 mg PO BEDTIME 03/03/17 Diltiazem HCl Coated Beads [Cardizem Cd] 240 mg PO DAILY #30 cap 03/06/17 Levalbuterol Nebs [Xopenex NEBS] 1.25 mg NEB Q8HR #24 units 03/06/17 Levalbuterol Tartrate [Xopenex Hfa] 45 mcg IN Q8HR #1 inh 03/06/17 Levofloxacin [Levaquin] 250 mg PO DAILY #10 tab 03/06/17 Methylprednisolone [Medrol Dose Cuauhtemoc] 4 mg PO DAILY #1 pack 03/06/17 Levofloxacin [Levaquin] 750 mg PO DAILY #4 tablet 05/01/17
--- NOTE | 2017-05-01 16:45 | RAD ---
EXAM DESCRIPTION: Chest,1 View CLINICAL HISTORY: SOB COMPARISON: 03/05/2017 FINDINGS: Aeration is improved generally at the lung bases but there is persistent bilateral subsegmental atelectasis. Cardiac silhouette is stable. Consolidation has developed at the inferior most right lung base. IMPRESSION: Right lung base worsened consolidation but generally improved aeration at the lung bases. Electronically signed by: Yariel John 05/01/2017 4:44 PM [facility]
[2017-05-01 16:58] VITALS: O2SAT 95
[2017-05-01] MEDS ORDERED: levoFLOXacin 500 MG TAB PO ONE (18:40)
[2017-05-01] MEDS ORDERED: methylPREDNISolone SODIUM SUC 125 MG/2 ML VIAL IM ONE ×2 (18:41→18:43)
[2017-05-01 19:19] VITALS: BP 132/89
== END 2017-05-01 19:20 | disposition home or self-care (01) ==
LOC: ER 15:26
DX: J18.1 Lobar pneumonia, unspecified organism (principal); R09.02 Hypoxemia; I48.91 Unspecified atrial fibrillation; J44.9 Chronic obstructive pulmonary disease, unspecified; I11.0 Hypertensive heart disease with heart failure; I50.9 Heart failure, unspecified; E11.9 Type 2 diabetes mellitus without complications; Z95.1 Presence of aortocoronary bypass graft
CPT/HCPCS: 36415; 71010; 80053; 83880; 84484; 85025; 85610; 85730; 93005; J2930

== ENCOUNTER → 2017-05-12 | Outpatient (CLI) | payer MEDICARE | END | disposition home or self-care (01) | LOC: GMAJ 11:14 | PROVIDERS: ATTEND Family Medicine | DX: R06.02 Shortness of breath (principal) ==

== ENCOUNTER 2017-05-22 09:46 | Observation (INO) | payer MEDICARE ==
[2017-05-22] MEDS ORDERED: FUROSEMIDE INJ 40 MG/4 ML VIAL IV ONE ×2 (11:10→17:05)
--- NOTE | 2017-05-22 11:31 | ED.PDOC ---
History of Present Illness - General Chief Complaint: Respiratory Problem Stated Complaint: sob Time Seen by Provider: 05/22/17 09:59 Source: patient Exam Limitations: no limitations - History of Present Illness Initial Comments: The patient is a 76-year-old male presenting to the emergency room secondary to worsening shortness of breath overnight. The patient has a strong history of congestive heart failure. He was just cardioverted back to normal sinus rhythm yesterday. He is still in normal sinus rhythm. He does report that he normally gets short of breath in the middle of the night and does have to go sleep in his chair. He is short of breath here and does not relate back due to shortness of breath. He has a cough but it is nonproductive. He does have edema here but not an unusual amount for him. No fever. No sore throat. No significant runny nose. He does appear tired. No chest pain. Of significant note when EMS arrived he did have his oxygen on however his oxygen saturations were only in the mid 80s. When he was switched over to nasal cannula with the EMS his oxygen supply his oxygen saturations came up nicely. It is suspected that his regulator is either not working correctly was oxygen supply was not being delivered correctly. Timing/Duration: 4-6 hours Severity: moderate Improving Factors: nothing Worsening Factors: nothing Associated Symptoms: loss of appetite, malaise, shortness of breath, weakness Allergies/Adverse Reactions: Allergies Aspirin Allergy (Verified 05/22/17 09:59) Codeine Allergy (Verified 05/22/17 10:00) Home Medications: Ambulatory Orders Dabigatran Etexilate Mesylate [Pradaxa] 150 mg PO BID 03/03/17 Furosemide [Lasix] 60 mg PO DAILY 03/03/17 Metoprolol Succinate [Metoprolol Succinate ER] 50 mg PO BID 03/03/17 Tamsulosin [Flomax] 0.4 mg PO BEDTIME 03/03/17 Diltiazem HCl Coated Beads [Cardizem Cd] 240 mg PO DAILY #30 cap 03/06/17 Glimepiride 1 mg PO DAILY 05/22/17 metFORMIN HCL [Glucophage] 500 mg PO BID 05/22/17 Review of Systems - Review of Systems Constitutional: States: malaise EENTM: States: no symptoms reported Respiratory: States: cough, short of breath Cardiology: States: no symptoms reported Gastrointestinal/Abdominal: States: no symptoms reported Genitourinary: States: no symptoms reported Musculoskeletal: States: no symptoms reported Skin: States: no symptoms reported Endocrine: States: no symptoms reported Hematologic/Lymphatic: States: no symptoms reported All other Systems: No Change from Baseline Past Medical History (General) - Patient Medical History Hx Seizures: No Hx Stroke: No Hx Asthma: No Hx of COPD: Yes Hx Cardiac Disorders: Yes - A-Fib Hx Congestive Heart Failure: Yes Hx Pacemaker: No Hx Hypertension: Yes Hx Diabetes: Yes Hx MRSA: No Surgical History: appendectomy, other - Vaccination History Hx Influenza Vaccination: Yes Hx Pneumococcal Vaccination: Yes - Social History Hx Tobacco Use: No Hx Alcohol Use: No Hx Substance Use: No Hx Physical Abuse: No Hx Emotional Abuse: No Family Medical History - Family History Father Family History: Unknown Living Status: Physical Exam - Physical Exam General Appearance: Alert - a little bit drowsy, No apparent distress Eye Exam: bilateral normal Ears, Nose, Throat: hearing grossly normal, normal ENT inspection, normal pharynx Neck: full range of motion, supple Respiratory: respiratory distress - mild, accessory muscle use, other - mild rales at bilateral bases Cardiovascular/Chest: normal peripheral pulses, regular rate, rhythm Peripheral Pulses: radial,right: 2+, radial,left: 2+, dorsalis pedis,right: 2+, dorsalis pedis,left: 2+ Gastrointestinal/Abdominal: non tender, soft Rectal Exam: deferred Back Exam: no CVA tenderness, no vertebral tenderness, other - multiple dermoid cyst posteriorly Extremity: normal range of motion, non-tender, normal inspection, normal capillary refill, pedal edema - +1 bilaterally 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, alert, normal mood/affect, oriented x 3 Skin Exam: normal color Comments: Vital Signs - 24 hr 05/22/17 05/22/17 05/22/17 09:47 10:30 10:50 Temperature 97.7 F Pulse Rate [ 101 H 92 H Apical] Respiratory 36 H 24 24 Rate Blood Pressure 154/91 139/76 [Left Arm] O2 Sat by Pulse 95 99 Oximetry 05/22/17 05/22/17 11:05 11:27 Temperature Pulse Rate [ 89 92 H Apical] Respiratory 20 20 Rate Blood Pressure 142/77 142/82 [Left Arm] O2 Sat by Pulse 98 99 Oximetry Progress - Progress Progress: 05/22/17 11:33 the patient's a 76-year-old male presenting to the emergency room with what appears to be a worsening CHF exacerbation. He has been placed on oxygen his oxygen saturation to have corrected. The patient received 40 mg of IV Lasix here. He does appear to still be in a normal sinus rhythm from his cardioversion yesterday. He is apparently still taking an oral antibiotic of which we are not sure from his previous lung infection. I do not see any clinical evidence of any overt infection at this time. He has had significant infiltrate to the right lower lung field for some period of time now so if he is failing to improve with diuresis then additional imaging may be warranted. Admit for further care and management. His oxygen delivery system at home they need to be reevaluated. - Results/Orders Results/Orders: Laboratory Tests 05/22/17 05/22/17 05/22/17 10:18 10:18 10:18 WBC 7.5 RBC 4.37 L Hgb 12.9 L Hct 40.8 L MCV 93.5 MCH 29.5 MCHC 31.6 L RDW 15.8 H Plt Count 250 MPV 8.0 Absolute Neuts (auto) 5.80 Absolute Lymphs (auto) 0.80 L Absolute Monos (auto) 0.80 Absolute Eos (auto) 0.20 Absolute Basos (auto) 0.00 Neutrophils % 77.0 Lymphocytes % 10.3 L Monocytes % 10.1 H Eosinophils % 2.2 Basophils % 0.4 PT 20.3 H* INR 1.810 PTT (SP) 85.3 H* Sodium 144 Potassium 4.9 Chloride 102 Carbon Dioxide 36 H Anion Gap 10.9 L BUN 39 H Creatinine 1.60 H BUN/Creatinine Ratio 24.4 H Random Glucose 226 H Serum Osmolality 303.3 H Calcium 9.8 Magnesium 2.5 Total Bilirubin 0.6 AST 17 ALT 16 Alkaline Phosphatase 86 Creatine Kinase 26 L CK-MB (CK-2) 1.9 CK-MB (CK-2) % Not Reportable Troponin I 0.02 B-Natriuretic Peptide 880.0 H* Serum Total Protein 7.7 Albumin 4.3 Globulin 3.4 Albumin/Globulin Ratio 1.3 final read on chest. X-ray is still pending due to technical difficulties. He does appear to have increased fluid overload as well as increased cardiomegaly. No new focal infiltrates as far as I can tell. Again final read is pending. EKG shows normal sinus rhythm at a rate of [address] segment changes concerning for ischemia. He does have a few PACs. Departure - Departure Clinical Impression: Acute exacerbation of CHF (congestive heart failure) Qualifiers: Congestive heart failure type: unspecified congestive heart failure type Qualified Code(s): I50.9 - Heart failure, unspecified Disposition: Admit Patient Referrals: Canelo Reyes MD [Primary Care Provider] - 1-2 Weeks Home Medications: Ambulatory Orders Dabigatran Etexilate Mesylate [Pradaxa] 150 mg PO BID 03/03/17 Furosemide [Lasix] 60 mg PO DAILY 03/03/17 Metoprolol Succinate [Metoprolol Succinate ER] 50 mg PO BID 03/03/17 Tamsulosin [Flomax] 0.4 mg PO BEDTIME 03/03/17 Diltiazem HCl Coated Beads [Cardizem Cd] 240 mg PO DAILY #30 cap 03/06/17 Glimepiride 1 mg PO DAILY 05/22/17 metFORMIN HCL [Glucophage] 500 mg PO BID 05/22/17 Decision To Admit - Decistion To Admit Decision to Admit Reason: Medical Nature Decision to Admit Date: 05/22/17 Decision to Admit Time: 11:34
--- NOTE | 2017-05-22 12:03 | RAD ---
PROCEDURE: XR CHEST 1 VIEW HISTORY: sob COMPARISON: 05/01/2017 TECHNIQUE: Single projection of the chest was done. FINDINGS: Note is again made of median sternotomy. There is presence of right midlung zone and bibasilar infiltrate/atelectasis, with slight interval worsening in these findings since the prior study done on 05/01/2017. There is presence of small bilateral pleural effusions, unchanged . There are no pneumothoraces The cardiomediastinal silhouette is stable. IMPRESSION: There is presence of right midlung zone and bibasilar infiltrate/atelectasis, with slight interval worsening in these findings since the prior study done on 05/01/2017. There is presence of small bilateral pleural effusions, unchanged . Electronically signed by: Edward Lin MD 05/22/2017 12:01 PM [facility] Workstation: [id number]
--- NOTE | 2017-05-22 12:59 | HP ---
SUPERVISING PHYSICIAN: Gokul Wyatt M.D. CHIEF COMPLAINT: Shortness of breath. HISTORY OF PRESENT ILLNESS: Mr. Babcock is a 76 year-old male patient that was brought to the Emergency Room today secondary to worsening shortness of breath. He noted that he normally in the the past has had to sleep in a chair in the middle of the night, but was able to actually sleep in a bed last night. It was noted that he had a history of atrial fibrillation and had an electrocardioversion completed yesterday, and was sent home. He noted he was feeling okay when he got home and was sleeping well until he started having significant shortness of breath. He does wear oxygen at home continuous. He notes that he does have a nonproductive cough and has edema to his lower extremities which did not appear to be any worse than his normal daily lower extremity edema that he deals with. When EMS arrived at his house, he was noted to be satting in the mid 80s as he was on his home oxygen. When he was changed to nasal cannula via the EMS oxygen supply, his oxygen saturations immediately improved up into the mid 90s. There was a question whether or not he was actually getting good flow from his home O2 setup. He was brought to the Emergency Department for evaluation. A chest x-ray single view was completed and per radiology interpretation showed the presence of a right mid lung zone and bibasilar infiltrate/atelectasis with slight interval worsening with studies compared to on 05/01/17. There was also note of a small bilateral pleural effusion which appeared to be unchanged. He does have a history of congestive heart failure and review of charts in the clinic showed that his last echocardiogram was in November of 2016 with a reported grade 3 diastolic dysfunction with an estimated ejection fraction of 50%. It is also of note that yesterday prior to going to [place] where he had his cardioversion by Dr. Zurita, he actually had not taken his Lasix. Also of note from review of the charts was that he has been in Dr. Reyes' office weekly over the last 3 weeks for ongoing increasing shortness of breath and was on 05/19/17 started on Ciprofloxacin for lobular pneumonia. He was in the hospital in February for treatment of right lobe pneumonia. His laboratory studies in the E. R. showed he had a normal white count at 7,500 with no evidence of a left shift. His chemistries showed that he had an elevated BUN and creatinine with elevated BNP of 880. His other electrolytes were within normal limits and also of note was his CO2 was elevated at 36. Given the findings on his chest x-ray and history of congestive heart failure, it was felt that the patient was having an exacerbation of his congestive heart failure and Dr. Wyatt, E. R. physician, requested the patient be placed in Observation for further treatment and evaluation, for diuresis to assist with decreasing his dyspnea. He was given 40 of Lasix in the Emergency Department and then admitted to the Medical/ Surgical floor in stable condition. PAST MEDICAL HISTORY: 1. Congestive heart failure with echocardiogram being performed on 12/10/16 showing an ejection fraction of 50% with a grade 3 diastolic dysfunction. 2. History of atrial fibrillation with a recent electrocardioversion on by Dr. Zurita showing to be in normal sinus rhythm. 3. Chronic obstructive pulmonary disease. 4. Hypertension. 5. Type 2 diabetes mellitus. 6. Coronary artery disease. 7. Cervical radiculopathy at C7. PAST SURGICAL HISTORY: 1. Appendectomy. 2. Arthroscopy of the right knee. 3. Right femur repair. 4. Triple bypass coronary artery bypass graft in 2008. CURRENT MEDICATIONS: Please see updated list of verified in the electronic medical records with current medications showing to be: 1. Metformin 500 mg b.i.d. 2. Glimepiride 1 mg daily. 3. Metoprolol succinate extended release 50 mg b.i.d. 4. Cardizem 240 mg daily. 5. Flomax 0.4 mg at bedtime. 6. Lasix 60 mg daily. 7. Pradaxa 150 mg b.i.d. ALLERGIES: ASPIRIN AND CODEINE. FAMILY HISTORY: Father at age 78 secondary to natural causes. Mother at age 87 of unknown causes. SOCIAL HISTORY: The patient is . He does live in [place]. He has a history of cigarette smoking but quit in 2008. He stopped drinking alcohol many years ago. He denies any illicit drug use. REVIEW OF SYSTEMS: CONSTITUTIONAL: Notes generalized fatigue and malaise with no significant weight change. HEENT: Negative for any sinus congestion, ear pain, sore throat, vision changes. RESPIRATORY: Noted shortness of breath as in the History of Present Illness with a nonproductive cough. CARDIOVASCULAR: No reported chest pains, palpitations or syncopal episodes, but recently had a cardioversion within the last 48 hours. GASTROINTESTINAL: Denies any nausea or vomiting, diarrhea, constipation or abdominal pains. GENITOURINARY: Denies any dysuria or hematuria or other urinary symptoms. NEUROLOGIC: Negative for any dizziness, seizures, syncopal episodes or neurological deficits. PHYSICAL EXAMINATION: VITAL SIGNS: Temperature 97.4, pulse 89, blood pressure 149/75, respirations 22 , satting 91% on nasal cannula at rest. Admission weight 87.7 kg. GENERAL: The patient on admission to the Medical/Surgical floor shows to be alert. No acute distress. He is sitting in a chair. He is obese-appearing. Appears tired and is alert times three. HEENT: Tympanic membranes are clear bilaterally. Oropharynx is pink, moist without any lesions. NECK: Supple, non-tender with full range of motion. No jugular venous distention. CHEST: Some notable rales bilaterally towards the bases but no rhonchi or wheezing. CARDIOVASCULAR: Regular rate and rhythm without appreciable murmurs, gallops, or rubs. ABDOMEN: Obese but soft, non-tender. Positive bowel sounds. EXTREMITIES: 1+ pedal edema bilaterally without clubbing or cyanosis. NEUROLOGIC: Cranial nerves II-XII are grossly intact with facial features symmetrical. Extraocular movements are within normal limits. There is no notable nystagmus. He was alert and oriented times three. LABORATORY: CBC shows a normal white count at 7,500 with hemoglobin 12.9, hematocrit 40.8, platelet count 250,000. Differential shows to be without a left shift. Coagulation studies show an elevated PT of 20.3 with INR of 1.8, PTT at 85.3. His on Pradaxa. Chemistries show normal electrolytes with an elevated carbon dioxide at 36, BUN 39, creatinine 1.6, glucose 226, serum osmolality 303 with calcium 9.8, magnesium 2.5. Liver functions are all within normal limits. Troponin was 0.02. BNP showed an elevation at 880. Urinalysis showed just a moderate amount of blood and on microscopic showed 10 to 20 RBCs and otherwise within normal limits. MICROBIOLOGY: Blood cultures are pending. Sputum culture is pending. Flu swab for A and B by PCR was negative. EKG in the Emergency Room showed normal sinus rhythm with a rate of [address] segment changes or any T wave inversion indicating ischemia. RADIOLOGY: Chest x-ray in the Emergency Department single view chest per radiology interpretation shows the presence of a right mid lung zone and bibasilar infiltrate/atelectasis with slight worsening compared to studies on with the presence of small bilateral pleural effusions that are unchanged. ASSESSMENT: 1. Exacerbation of congestive heart failure with an elevated BNP with the patient showing last echocardiogram in November with an ejection fraction of 50% and a grade 3 diastolic dysfunction in a patient O2 dependent with increasing dyspnea with some noted bilateral pleural effusions on initial radiographic studies. 2. Chronic obstructive pulmonary disease with an exacerbation with concerns for pneumonia having failed to respond to outpatient treatment plan likely community acquired with the patient recently on antibiotics prior to admission to include Ciprofloxacin. 3. History of atrial fibrillation with recent electrocardioversion by Dr. Zurita on 05/19/17 with the patient now showing to be in normal sinus rhythm and on Pradaxa. 4. Diabetes mellitus type 2 on oral therapy. 5. Hypertension. 6. History of 3 vessel coronary artery bypass graft. 7. Renal insufficiency likely chronic but some exacerbation from some prerenal azotemia from dehydration versus previous loop diuretic administration. PLAN: The patient will be placed in Observation initially overnight for the exacerbation of his congestive heart failure with initiation of diuresis with Lasix. He was initially give 40 mg in the Emergency Department prior to admission. This will be followed-up with an additional dose of 40 mg later after admission to the Medical/Surgical floor. Given that the patient has had recent treatment for lobular pneumonia and some radiographic findings still indicating an infiltrative process, will start the patient on Levaquin and plan to do a CT of the chest with contrast to further evaluate the underlying pleural effusion and the persistent shortness of breath and pneumonia having been treated over the last 3 weeks. He will be on aggressive pulmonary hygiene with Xopenex treatments. Will obtain a sputum culture and blood cultures prior to starting the Levaquin. He is already on Pradaxa. Will continue this for DVT prophylaxis. Will have him on a fluid restriction of less than 1500 mL per 24 hours. Will plan to reevaluate with a CBC and a BNP in the morning and closely monitor his I's and O's. Will anticipate 1 to 2 days of admission hopefully being able to discharge tomorrow to have continued outpatient treatment plan. Again, reassess in the morning prior to discharge. If the patient shows to be clinically unstable with minimal improvement, certainly will change the patient to full admission with considerations of continuation of treatment, but again will await a CT study to further assess and help with the treatment plan. He will be on insulin sliding scale per protocol. Until discharge, will continue to monitor and treat appropriately. #[id number] MTDD
[2017-05-22] MEDS ORDERED: SODIUM CHLORIDE 0.9% (FLUSH) 10 ML SYG IV PRN (13:53)
[2017-05-22] MEDS ORDERED: GLUCAGON INJ 1 MG VIAL SUBCU PRN (13:53)
[2017-05-22] MEDS ORDERED: ACETAMINOPHEN 325 MG TAB PO PRN (13:53)
[2017-05-22] MEDS ORDERED: DEXTROSE 50% 25 GM/50 ML SYG IV PRN (13:53)
[2017-05-22] MEDS ORDERED: NITROGLYCERIN 0.4 MG 25 EA TAB SL PRN (13:53)
[2017-05-22] MEDS ORDERED: IV SET AND CAP CHANGE INJ INJ SCH (14:00)
[2017-05-22] MEDS ORDERED: NITROGLYCERIN 0.1 MG/HR PATCH TD SCH (16:00)
--- NOTE | 2017-05-22 16:27 | CT ---
PROCEDURE: Chest w/Contrast HISTORY: CHF/ pneumonia not responding to therapy Indication: Same as above Comparison: Chest x-ray done on the same day Technique: CT of the chest was done with intravenous contrast, followed by orthogonal reconstructions. The patient was injected with contrast intravenously, without any documented immediate adverse reactions. This exam was performed according to our departmental dose-optimization program, which includes automated exposure control, adjustment of the mA and/or KV according to the patient's size and/or use of iterative reconstruction technique. FINDINGS: There is presence of moderate size free flowing bilateral pleural effusions, worse on the right side. A portion of the bilateral pleural effusions is in subpulmonic location. There is presence of bilateral lower lobe, right middle lobe and left upper lobe infiltrate/atelectasis. There is presence of a 2.8 x 1.9 x 2.2 cm well-circumscribed mass in the medial aspect of the right infrahilar region in the expected location of the right lower lobe of the lung. Few reactive lymph nodes are seen in the mediastinum, measuring less than 1 cm in short axis dimension. There is no gross evidence of pulmonary embolism. There is no clinically significant thoracic aortic aneurysm or dissection. There is no clinically significant pericardial effusion. The visualized thoracic bony rib cage appears unremarkable. Small amount of ascites fluid is also seen in the right upper quadrant of the abdomen in a subhepatic location. There is presence of a benign exophytic cyst arising from the lateral aspect of the upper pole of the right kidney IMPRESSION: There is presence of moderate size free flowing bilateral pleural effusions, worse on the right side. A portion of these bilateral pleural effusions is in subpulmonic location. There is presence of bilateral lower lobe, right middle lobe and left upper lobe infiltrate/atelectasis. There is presence of a 2.8 x 1.9 x 2.2 cm well-circumscribed mass in the right infrahilar region in the expected location of the medial aspect of the right lower lobe of the lung. This may represent an enlarged lymph node or a true lung parenchymal mass and needs to be assessed further Small amount of ascites fluid is also seen in the right upper quadrant of the abdomen in a subhepatic location Electronically signed by: Edward Lin MD 05/22/2017 4:26 PM [facility] Workstation: [id number]
[2017-05-22] MEDS ORDERED: LEVALBUTEROL NEBS 1.25 MG/3 ML VIAL NEB PRN (16:52)
[2017-05-22] MEDS ORDERED: metFORMIN HCL 500 MG TAB PO SCH (17:00)
--- NOTE | 2017-05-22 17:36 | PCM.CORE ---
Physician DVT/VTE - Prophylaxis Currently: Patient already on anticoagulation therapy - pradaxa - Nurse DVT Assessment & Total Each Risk Factor Represents 3 Points: Age over 75 years, Medical PT with Hx of [place], CHF, Severe infection/sepsis Each Risk Factor is 1 Point: Obesity (BMI >25) DVT Assessment Score: 7
[2017-05-22] MEDS ORDERED: FUROSEMIDE INJ 20 MG/2 ML VIAL ONE (17:46)
[2017-05-22] MEDS: INSULIN LISPRO 100 UNITS/ML PEN SUBCU SCH ×2 (17:55→21:07)
[2017-05-22] MEDS ORDERED: TAMSULOSIN 0.4 MG CAP ONE (19:36)
[2017-05-22] MEDS ORDERED: levoFLOXacin 500MG IV 100 ML IVPB ONE (19:37)
[2017-05-22] MEDS ORDERED: METOPROLOL SUCCINATE XL 50 MG TAB ONE (19:37)
[2017-05-22] MEDS ORDERED: DABIGATRAN ETEXILATE 75 MG CAP PO ONE (19:37)
[2017-05-22] MEDS: METOPROLOL SUCCINATE XL 50 MG TAB PO SCH (20:59)
[2017-05-22] MEDS: SODIUM CHLORIDE 0.9% (FLUSH) 10 ML SYG IV SCH (20:59)
[2017-05-22] MEDS: DABIGATRAN ETEXILATE 75 MG CAP PO SCH (20:59)
[2017-05-22] MEDS ORDERED: levoFLOXacin 500MG IV 500 MG in PREMIX BAG 1 BAG IVPB SCH (21:00)
[2017-05-22] MEDS ORDERED: TAMSULOSIN 0.4 MG CAP PO SCH (21:00)
[2017-05-23] MEDS: LEVALBUTEROL NEBS 1.25 MG/3 ML VIAL NEB SCH ×2 (00:45→09:01)
[2017-05-23] MEDS ORDERED: REMOVE OLD PATCH TOP SCH (04:00)
--- NOTE | 2017-05-23 06:31 | RAD ---
EXAM: Two view chest. INDICATION: CHF. COMPARISON: Chest x-ray: 05/22/2017. FINDINGS: There are bibasilar airspace opacities with bilateral pleural effusions. There is subsegmental atelectasis along the bilateral hilar regions. Heart size is stable. There is no pneumothorax. The bones are unchanged IMPRESSION: Bibasilar airspace opacities with bilateral pleural effusions Electronically signed by: Nahum Hernandez MD 05/23/2017 6:30 AM [facility] Workstation: [id number]
[2017-05-23] MEDS: INSULIN LISPRO 100 UNITS/ML PEN SUBCU SCH ×2 (07:18→11:28)
[2017-05-23] MEDS ORDERED: GLIMEPIRIDE 2 MG TAB PO SCH (07:30)
[2017-05-23] MEDS: DABIGATRAN ETEXILATE 75 MG CAP PO SCH (08:10)
[2017-05-23] MEDS: SODIUM CHLORIDE 0.9% (FLUSH) 10 ML SYG IV SCH (08:11)
[2017-05-23] MEDS: METOPROLOL SUCCINATE XL 50 MG TAB PO SCH (08:11)
[2017-05-23] MEDS ORDERED: FUROSEMIDE INJ 40 MG/4 ML VIAL IV SCH (09:00)
[2017-05-23 10:26] VITALS: BP 104/69; TEMP 98.1; O2SAT 93
== END 2017-05-23 12:30 | disposition home health service (06) ==
LOC: ER 09:46 → MS 12:39 → INTOOBSV 12:39
PROVIDERS: ADMIT Nurse Practitioner Family; ATTEND Nurse Practitioner Family
DX: I13.0 Hypertensive heart and chronic kidney disease with heart failure and stage 1 through stage 4 chronic kidney disease, or unspecified chronic kidney disease (principal); I50.33 Acute on chronic diastolic (congestive) heart failure; N18.9 Chronic kidney disease, unspecified; E11.22 Type 2 diabetes mellitus with diabetic chronic kidney disease; J44.1 Chronic obstructive pulmonary disease with (acute) exacerbation; J90 Pleural effusion, not elsewhere classified; I48.91 Unspecified atrial fibrillation; I25.10 Atherosclerotic heart disease of native coronary artery without angina pectoris; M54.12 Radiculopathy, cervical region; R91.8 Other nonspecific abnormal finding of lung field; R18.8 Other ascites; Z99.81 Dependence on supplemental oxygen; Z79.84 Long term (current) use of oral hypoglycemic drugs; Z79.02 Long term (current) use of antithrombotics/antiplatelets; Z79.899 Other long term (current) drug therapy; Z88.6 Allergy status to analgesic agent; Z95.1 Presence of aortocoronary bypass graft; Z98.890 Other specified postprocedural states; Z87.891 Personal history of nicotine dependence
CPT/HCPCS: 36415 ×2; 36416 ×4; 71010; 71020; 71260; 80053 ×2; 81001; 82550; 82553; 82948 ×4; 83735; 83880; 84484; 85025 ×2; 85610; 85730; 87040 ×2; 87502; 93005; 94640 ×2; 94760 ×3; 96365; 96372 ×2; 96375; 96376 ×2; 99284; G0378; J1815; J1940 ×3; J1956; J7614

== ENCOUNTER → 2017-06-02 | Outpatient (CLI) | payer MEDICARE | END | disposition home or self-care (01) | LOC: GMAJ 14:49 | PROVIDERS: ATTEND Family Medicine | DX: R06.02 Shortness of breath (principal) ==

== ENCOUNTER → 2017-06-29 | Outpatient (CLI) | payer MEDICARE | LOC: GMAJ 17:51 | PROVIDERS: ATTEND Family Medicine | DX: N39.0 Urinary tract infection, site not specified (principal) ==

== ENCOUNTER → 2017-07-13 | Outpatient (CLI) | payer MEDICARE | LOC: YCHH 10:51 | PROVIDERS: ATTEND Family Medicine | DX: N39.0 Urinary tract infection, site not specified (principal) ==

== ENCOUNTER → 2017-08-11 | Outpatient (CLI) | payer MEDICARE ==
--- NOTE | 2017-08-11 13:25 | CT ---
EXAM DESCRIPTION: Chest w/o Contrast : Computed Tomography. 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 TECHNIQUE: Spiral-axial scans at 5.0 mm intervals through the lungs and thorax without IV contrast. 2.5 mm lung algorithm axial reconstructions. Coronal and sagittal 2.0 Mm reconstructions. Total Exam DLP: 671.46 mGy-cm. This exam was performed according to our departmental dose-optimization program which includes automated exposure control, adjustment of the mA and/or kV according to patient size and/or use of iterative reconstruction technique; to reduce radiation dose to as low as reasonably achievable (ALARA). FINDINGS: Bilateral moderate pleural effusions are again noted slightly more on the right than the left. Bilateral lower lobe atelectasis and possible consolidation in the right lower lobe with air bronchograms. This has increased since the prior study but no effusions bilaterally have decreased in size no new abnormal nodules or masses in the lung that is aerated. Evaluation of the soft tissues limited due to lack of IV contrast. Heterogeneous density of the thyroid with no soft tissue masses in the base of the neck. No soft new soft tissue masses or significant increase in adenopathy in the mediastinum or hilum. Normal bilateral axillary lymph nodes. Coronary artery calcifications, cardiac surgical hardware and possible stents. Minimal fascial thickening in the abdomen could indicate ascites not seen on the study. Normal density and size of the adrenal glands and spleen. Atherosclerotic calcification of the thoracic and abdominal aorta. Cyst on the posterior right kidney. Diffuse thoracic kyphosis. Prior sternotomy wires IMPRESSION: 1. Decrease in bilateral pleural effusions since the prior study. Increased atelectasis in consolidation suggesting pneumonia in the right lower lobe. 2. The lung that is visualized shows no new abnormal nodules or masses. Limited evaluation of the mediastinum and hilum without IV contrast but no large soft tissue masses. Electronically signed by: Yariel Mcnally MD 08/11/2017 1:24 PM CDT
== END ==
LOC: CT 10:04
PROVIDERS: ATTEND Family Medicine
DX: D38.1 Neoplasm of uncertain behavior of trachea, bronchus and lung (principal)